=== PATIENT | male | born 1950 | race Caucasian/White ===

== ENCOUNTER 2018-05-21 12:37 | Inpatient (IN) | payer MEDICARE ==
[~2018-05-21] VITALS: Ht 175.3 cm; Wt 82.0 kg
[2018-05-21] VITALS (29 sets, daily range): BP systolic 79–152; BP diastolic 52–92
--- NOTE | ~2018-05-21 | EKG ---
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
--- NOTE | ~2018-05-21 | PR ---
[place], [place] PROGRESS NOTE NAME: GISELE QUINTANILLA UNIT #: [id number] ROOM: [facility] DOCTOR: BREEZY STEVENS MD,GAMALIEL BIRTHDATE: [birth year] DOS: 05/23/2018 SUBJECTIVE: The patient remains on mechanical ventilator on the assist control, volume control mechanical ventilation. Oxygen supplementation decreased from 35%, 30% oxygen saturation at bedside recorded as 95-96% saturation. The sedation was continued with Diprivan and Versed combination. Mental status has been noted appropriate with reduction of sedation this morning. He had not been noted any ongoing acute hemodynamic stability. The patient was continued feeding from yesterday. Ventilator bundle management was continued. There had not been any significant secretion production noted from the endotracheal aspirate which appeared to be thick. OBJECTIVE: VITAL SIGNS: The patient showed normal temperature, respiratory rate range between 18-19, heart rate of 94-87, blood pressure 154/81, 123/67. The pulse oxygen saturation 30% oxygen 96% saturation at bedside. HEAD, EYES, EARS, NOSE, AND THROAT: The patient remained orally intubated. Endotracheal tube in place as the orogastric tube is in place. NECK: Supple and obese. CARDIOVASCULAR SYSTEM: S1, S2 audible. LUNGS: Moderate decreased breath sounds were noted at the present time. There were no crackles, rhonchi or wheezing. ABDOMEN: Soft, obese, nontender. Bowel sounds present. EXTREMITIES: The patient noted without acute edema. VISIBLE SKIN: No lesions or rashes. MUSCULOSKELETAL: Without any acute deformities. LABORATORY DATA: CBC this morning: WBC count of 11.1, hemoglobin 12.2, platelet count was normal. BMP this morning, BUN 55, creatinine 1.60. Glucose 290. Calcium was low at 7.2, but uncorrected with the albumin. Magnesium 2.6. The culture of the endotracheal aspirate preliminary noted normal gibson. Gram stain many white blood cells with few gram-positive cocci in pairs. Blood culture was noted without any bacterial growths. IMPRESSION: 1. The patient will be currently admitted to the hospital noted with acute severe exacerbation of chronic obstructive pulmonary disease, acute severe hypercapnic and hypoxemic respiratory failure. 2. The patient with a small pneumonia and/or atelectasis right lower lobe has been considered and acute chronic moderate obesity. 3. Heavy nicotine abuse as well. 4. The patient with prerenal azotemia with acute kidney with intravascular volume depletion would be very likely cause. 5. Metabolic alkalosis. 6. Low gas allowed, but uncorrected with that of no clinical significance. PLAN OF MANAGEMENT: The patient will be discontinued sedation at the present time, started at CPAP of 5, pressure support of 10 for 2 hours. The tidal volume noted about 500 mL per. Respiratory rate about 26, 28 on that, the patient appeared to be comfortable. The vasopressor therapy in case of [place], [place] PROGRESS NOTE NAME: GISELE QUINTNAILLA UNIT #: [id number] ROOM: [facility] DOCTOR: BREEZY STEVENS MD,GAMALIEL BIRTHDATE: [birth year] hypotension. Continue replacement patches and continue ventilator bundle management. No change in antibiotics. Repeat another chest x-ray of this morning to assess progression of the left lower lobe area of atelectasis for any additional development of new issues. Other supportive therapy, plan of management and care plan for this as well. Usual treatment, all other care, plan of management and therapies. Additional treatment changes will be done based on the progression of the illness. Total time in pulmonary critical evaluation and management was 36 minutes. GAMALIEL TIJERINA MD CM:PNTRANS [id number] GAMALIEL STEVENS MD 06/04/18 1026 interface
--- NOTE | ~2018-05-21 | PR ---
[place], [place] PROGRESS NOTE NAME: GISELE QUINTANILLA UNIT #: [id number] ROOM: [facility] DOCTOR: BREEZY STEVENS MD,GAMALIEL BIRTHDATE: [birth year] DOS: 05/25/2018 SUBJECTIVE: The patient was noted comfortable at this time, resting on the bed. This morning was noted much more awake, alert, oriented and cooperative with examination. The patient would like to be discharged home today. Case medical advice. He seemed to be awake, alert, oriented this morning. The oxygen supplementation was given with the nasal cannula, using the BiPAP intermittently in the last 24 hours. Denies symptoms of chest pain or hemoptysis. There were no symptoms of fever or chills reported. Denies symptoms of nausea, vomiting, diarrhea, headache, or diplopia. Remaining review of systems was noted as normal rather negative. OBJECTIVE: VITAL SIGNS: Shows normal temperature, respiratory rate of 19-28 previously. Heart rate of 82-115, blood pressure is 142/63-139/76. The pulse oxygen saturation with BiPAP was 94% saturation with the nasal cannula about 3-4 liters and 95% saturation at rest. HEENT: No new change. Mild to moderate obesity. CARDIOVASCULAR: S1, S2 audible. LUNGS: There is no wheezing, no crackles. ABDOMEN: Soft, nontender. Bowel sounds present. EXTREMITIES: No acute change. MUSCULOSKELETAL: Without acute deformities. CENTRAL NERVOUS SYSTEM: No focal deficit. SKIN: Visible skin without lesions or rashes. LABORATORY DATA: CBC of the patient this morning WBC count 11.5, hemoglobin 13.4, platelet count normal. Arterial blood gas this morning on the BiPAP, pH 7.41, pCO2 of 62, pO2 of 77.1. The CMP of the patient this morning, BUN 32, creatinine normal, glucose of 89. IMPRESSION: 1. Resolving acute hypercapnic hypoxic respiratory failure. 2. Severe acute exacerbation of chronic obstructive pulmonary disease. The patient with gradual improvement. 3. Nicotine dependence. 4. Moderate obesity. PLAN OF MANAGEMENT: Discharge planning per primary care physician or discharge against medical advice. The patient will be recommended about continued management in the hospital. The patient to be discharged whenever medically stable. His code status had been changed to comfort care as stated by the patient. [place], [place] PROGRESS NOTE NAME: GISELE QUINTANILLA UNIT #: [id number] ROOM: [facility] DOCTOR: BREEZY STEVENS MD,GAMALIEL BIRTHDATE: [birth year] GAMALIEL TIJERINA MD CM:KASIA [id number] GAMALIEL STEVENS MD 05/26/18212 interface
--- NOTE | ~2018-05-21 | EKG ---
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
--- NOTE | ~2018-05-21 | PR ---
[place], [place] PROGRESS NOTE NAME: GISELE QUINTANILLA UNIT #: [id number] ROOM: [facility] DOCTOR: BREEZY STEVENS MD,GAMALIEL BIRTHDATE: [birth year] DOS: 05/24/2018 SUBJECTIVE: He was successfully liberated from mechanical ventilator, noted some agitated behavior at times requiring wrist restraints. The patient was also given Ativan last night because of that and was noted with change in mental status with lethargy. This morning, the patient has been noted with the BiPAP on place, but still does not follow vocal commands. He was also noted difficulty swallowing yesterday and made n.p.o. He had not been able to give me any history. The oxygen requirement on the BiPAP remains the same. The patient has not been noted with any acute distress this morning of assessment except noted with some restlessness. REVIEW OF SYSTEMS: Could not be completed because of that. Family, social, surgical history remains the same. OBJECTIVE: VITAL SIGNS: Normal temperature, respiratory rate 14, heart rate 88, blood pressure is 119/60 to 125/69. The pulse oxygen saturation recorded as 99% saturation with the BiPAP 18/10, 40% oxygen. HEENT: Examination shows head was atraumatic. Eyes nonicterus. Chronic moderate obesity. The patient orally extubated. Orogastric tube has been removed. NECK: Supple and obese. CARDIOVASCULAR: S1, S2 audible. LUNGS: [id number], decreased breath sounds noted without any crackles. Scattered expiratory wheezing. ABDOMEN: Soft, nontender, positive bowel sounds. EXTREMITIES: No new changes. SKIN: No lesions or rashes. MUSCULOSKELETAL: Without any deformity. CENTRAL NERVOUS SYSTEMS: Cannot be assessed at this time with current mental status. LABORATORY DATA: Labs today CBC, WBC count 12.9, hemoglobin 12.7, platelet count was normal. The BMP this morning, BUN 41, creatinine was normal, glucose 311. The culture of the sputum endotracheal aspiration noted light growth of yeast. IMPRESSION: 1. The patient with change in mental status with resolving acute exacerbation of chronic obstructive pulmonary disease with possibility of psychosis, superimposed as well. 2. The patient with chronic obesity. 3. Past history of nicotine abuse. 4. Resolution of acute kidney progressively. 5. Acute tracheobronchitis as well. PLAN OF MANAGEMENT: Decrease the Solu-Medrol dose to 40 mg b.i.d. today. Obtain arterial blood gas. Continue the BiPAP current settings. Discontinue [place], [place] PROGRESS NOTE NAME: GISELE QUINTANILLA UNIT #: [id number] ROOM: [facility] DOCTOR: BREEZY STEVENS MD,GAMALIEL BIRTHDATE: [birth year] the Ativan. Start the patient on Haldol 2.5 mg q. 4 hour p.r.n. for any agitated behavior. Keep the patient n.p.o. until the mental status improves. Ordered the modified barium swallow because the patient will not be able to cooperate and perform it at this time as expected current mental status changes. The medication will be changed since the patient was liberated from mechanical ventilation and discontinue and medication would not be necessary, used as a part of ventilator bundle management in the Intensive Care Unit at the present time. Usual care, other supportive therapy, plan of management, care plan of treatment and therapies. Other additional treatment changes will be made based on progression of the illness. GAMALIEL TIJERINA MD CM:PNTRANS [id number] GAMALIEL STEVENS MD 06/04/18 1027 interface
--- NOTE | ~2018-05-21 | EKG ---
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
--- NOTE | ~2018-05-21 | CON ---
[place], [place] REPORT OF CONSULTATION NAME: GISELE QUINTANILLA UNIT #: [id number] ROOM: [facility] DOCTOR: BREEZY STEVENS MD,GAMALIEL BIRTHDATE: [birth year] DOS: 05/22/2018 PULMONARY CRITICAL CARE CONSULTATION History could not be obtained from the patient, all the history contained in document with patient, reviewed the medical record, patient documentation by the other physician noted and nurses' notes. HISTORY OF PRESENT ILLNESS: A 67-year-old white male with past history of COPD and diabetes mellitus, presented to the hospital by ambulance. The patient has reported symptoms of shortness of breath. Patient noted to be in severe respiratory distress. The patient shortness of breath prior to arrival. The patient has been admitted to the hospital for patient noted for progressive deterioration of respiratory status requiring intubation and mechanical ventilation for the progressive respiratory failure, nonresponsive to the current conservative therapy. The patient has been currently intubated, remains on mechanical ventilator, sedated with intravenous Diprivan for patient effectively. He has been continuing mechanical ventilation, gradual reduction of the oxygen supplementation was done for the patient based on pulmonary artery saturation and review of the arterial blood gases. He has not been noted any frothy secretion production, patient had endotracheal aspirate, moderate amount of thick secretion production was noted from the endotracheal aspirate. REVIEW OF SYSTEMS: For this patient could not be performed since the patient is currently intubated on mechanical ventilation. PAST MEDICAL HISTORY: Reported with: 1. COPD. 2. Type 2 diabetes mellitus. 3. Essential hypertension. 4. Hyperlipidemia. 5. Diabetic gastroparesis. 6. Chronic nicotine dependence. PAST SURGICAL HISTORY: Reported as cholecystectomy. SOCIAL HISTORY: The patient lives at home. Heavy tobacco use noted from patient from since a teenager patient, 3-5 packs of cigarettes per day for this patient. There was no history of alcohol use or illicit drug use that patient reported. FAMILY HISTORY: Reported for the father of patient dying at the age of 70 of complications of stroke. Mother age of 70 from complications of lung cancer. MEDICATIONS AT HOME: List was not available. DRUG ALLERGIES: Patient reported ALLERGIES TO CODEINE CAUSING HIVES. PHYSICAL EXAMINATION: [place], [place] REPORT OF CONSULTATION NAME: GISELE QUINTANILLA UNIT #: [id number] ROOM: [facility] DOCTOR: BREEZY STEVENS MD,GAMALIEL BIRTHDATE: [birth year] GENERAL: A 67-year-old male patient, currently intubated on mechanical ventilator at the present time. VITAL SIGNS: Height of 5 feet 9 inches, weight of 180 pounds. Patient with temperature recorded showed normal temperature since admission. The respiratory rate of patient between 46 the highest. The patient currently noted on mechanical ventilator, respiratory rate 14, heart rate ranging between 88, noted 160 from admission. The blood pressure of patient noted at 99/67 patient to 100/68. Intake patient since last night, intake 3000 mL, output 475 mL. Pulse ox saturation 35% oxygen, 99% saturation. Previously with the BiPAP 97% saturation. HEENT: Patient remains currently intubated. Orogastric tube is in place. Head was atraumatic. Eyes nonicterus. NECK: Supple. It was mildly obese. CARDIOVASCULAR SYSTEM: S1, S2 audible. LUNGS: The patient is noted with decreased active breath sounds with expiratory wheezing without any crackles. ABDOMEN: Soft with mild obesity. Bowel sounds present. EXTREMITIES: The patient noted without acute edema with no skin lesions or rash. MUSCULOSKELETAL: Without acute deformities. CENTRAL NERVOUS SYSTEM: At this time, patient is sedated. Further evaluation cannot be performed, but not reported any neurologic deficit prior to the intubation, mechanical ventilation and sedation. LABORATORY DATA: The patient's lactic acid yesterday on admission was 1.9. CMP that was done on the patient on 05/21, glucose 224, BUN, creatinine and LFTs normal. The pH of 7.25, pCO2 of 64, pO2 of 102. CBC on the patient that was done yesterday, WBC count 25.3, hemoglobin and hematocrit normal, platelet count normal. Influenza A and B nasal wash and antigens were negative. The troponin 0.821 yesterday, noted a repeat troponin on patient, max of 1.52 yesterday as well. The CBC on the patient on this morning labs, WBC count 13.5, hemoglobin 13.5, platelet count was normal, 94% segmented neutrophils with the differentials. PT and PTT for the patient this morning remains normal. CMP of the patient this morning labs, BUN of 41, creatinine 1.95, glucose of 390, sodium 134. Phosphorus was 5.5. CMP of the patient yesterday labs, patient was noted with hyperglycemia, otherwise normal CMP. Blood glucose was noted for the patient 471 yesterday. Arterial blood gas for patient, several of those was repeated for this patient at different times for this patient. The pH is 7.25, pCO2 of 64 on 10 liter nasal cannula for the patient. Arterial blood gas for the patient that was done post-intubation, mechanical ventilation, 100% oxygen, pH was 7.15, pCO2 of 73, pO2 of 150. The arterial blood gas that has been done for patient this morning, assist control volume control mechanical ventilation, pH 7.42, pCO2 of 52, pO2 of 111 for the patient, at that time, the oxygen supplementation noted 35%. RADIOLOGY DATA: Reviewed of this patient. The chest x-rays were done several on admission for this patient. Chest x-ray that was done for the patient in the Emergency Room yesterday noted without any acute changes, hyperinflation of lungs were noted. Chest x-ray that was done for the patient this morning was reviewed, shows mild increased interstitial markings, multi-lumen catheter in [place], [place] REPORT OF CONSULTATION NAME: GISELE QUINTANILLA UNIT #: [id number] ROOM: [facility] DOCTOR: BREEZY STEVENS MD,[facility] BIRTHDATE: [birth year] place in the right internal jugular vein, endotracheal tube in proper position, NG tube in the stomach, changes of COPD, mild prominent left hilar area, maybe rotational effect. IMPRESSION: 1. Patient currently admitted to the hospital, noted severe acute hypercapnic and hypoxic respiratory failure, result of acute exacerbation of chronic obstructive pulmonary disease and acute tracheobronchitis. At this time, there was no visible pneumonic infiltration. 2. History of chronic heavy nicotine dependence as well. 3. Patient with severe tachycardia, which seemed to be improved. 4. Abnormal troponin, possible non-ST segment elevation myocardial infarction as well, currently treating patient with conservative management with use of therapeutic Lovenox, chewable aspirin and other medications. 5. Patient with history of essential hypertension and hyperlipidemia as well. PLAN OF MANAGEMENT: Continue current antibiotics, corticosteroid for patient Solu-Medrol every 8 hours, ventilator bundle management. Valle culture for the patient will be obtained as well. Continue to adjust ventilator setting. The patient remains on ventilatory status, some changes have been made in mechanical ventilation for patient to improve his inspiratory and expiratory ratio. Mechanical ventilation was improved with that as well without significant elevation of peak airway pressure, the plateau pressure noted about 15-16 as well and peak airway pressure about 37. Oxygen supplementation continue to titrate to maintain pulse ox 92% or greater. Other additional treatment changes will be planned and made for this patient based on progressive illness. Because of COPD exacerbation, DuoNeb will be changed to albuterol sulfate. Peridex rinse for the patient was ordered. Protonix will be given. Follow the other recommendations for patient by the Cardiology Service for cardiac management. Close monitoring of the respiratory status. The patient will be started on the nutrition support as well. Other additional treatment changes will be done for the patient based on progression of the illness. Total time for pulmonary critical care evaluation and management for the patient was 40 minutes. GAMALIEL TIJERINA MD CM:CONSTR:REPORT OF CONSULTATION 1346 05/23/18 1327 interface
--- NOTE | ~2018-05-21 | PR ---
[place], [place] PROGRESS NOTE NAME: GISELE QUINTANILLA UNIT #: [id number] ROOM: [facility] DOCTOR: BREEZY SETVENS MD,GAMALIEL BIRTHDATE: [birth year] DOS: 05/26/2018 SUBJECTIVE: The patient was noted comfortable at this time, sitting on the chair this morning. Planned for possible home discharge today upon patient request. The code status has been modified yesterday also because the patient requires. Denies symptoms of chest pain, hemoptysis, fever or chills. OBJECTIVE: VITAL SIGNS: Normal temperature, respiratory rate 28, heart rate of 84, and blood pressure 135/59. Pulse oxygen saturation of 4 liters nasal cannula 97% saturation. HEENT: No acute change. NECK: Supple. CARDIOVASCULAR: S1, S2 audible. LUNGS: The patient was noted with occasional wheezing, no crackles. ABDOMEN: Soft and nontender. Bowel sounds present. EXTREMITIES: No acute change. LABORATORY DATA: CBC, WBC count 11.0, hemoglobin 12.2, platelet count normal. BUN 26, creatinine was normal. Glucose 177. IMPRESSION: 1. The patient with resolving acute hypercapnic hypoxic respiratory failure, exacerbation of chronic obstructive pulmonary disease. 2. Muscle decondition and debility secondary to current acute exacerbation of chronic obstructive pulmonary disease and respiratory failure. PLAN OF MANAGEMENT: No changes in the plan of management. According to the patient wishes to code status will be continued the same. Discharge planning for the patient has already been made for this patient by the primary care attending. Follow the directions. GAMALIEL TIJERINA MD CM:PNTRANS [id number] GAMALIEL STEVENS MD 05/26/181919 interface
--- NOTE | ~2018-05-21 | EKG ---
[place], [place] ELECTROCARDIOGRAM REPORT NAME: GISELE QUINTANILLA UNIT #: [id number] ROOM: [facility] DOCTOR: USMAN DRAFT REPORT BIRTHDATE: [birth year] [facility] Test Date: 2018-05-21 Test Time: 20:10:44 Pat Name: GISELE QUINTANILLA Department: Room: [facility] 1 Gender: M Keyliner: Griselda Briseno : 1950 Requested By: SYDNEY BOURGEOIS Order Number: [id number] Reading MD: Shanique Pearson MD Measurements Intervals [place] Rate: 114 P: 65 RI: 129 QRS: 89 QRSD: 94 T: 85 QT: 311 QTc: 429 Interpretive Statements Sinus tachycardia Borderline right axis deviation Nonspecific T abnormalities, lateral leads Compared to ECG 05/21/2018 13:24:42 T-wave abnormality now present Atrial premature complex(es) no longer present Electronically Signed On 05-22-2018 12:16:42 PST by Shanique Pearson MD CM:EKGRPT:ELECTROCARDIOGRAM REPORT 09 [id number] SYDNEY BOURGEOIS EPIPHANY DRAFT REPORT SYDNEY BOURGEOIS
[2018-05-21 13:06] LABS: HEMATOCRIT 47.6 % (42.0-52.0); HEMOGLOBIN 15.6 g/dl (14.0-18.0); MEAN CORPUSCULAR HGB 29.5 pg (27.0-31.0); MEAN CORPUSCULAR HGB CONC 32.8 g/dl (33.0-37.0); MEAN PLATELET VOLUME 10.6 fl (9.6-12.3); PLATELET COUNT AUTOMATED 249 10*3/uL (130-400); RED BLOOD COUNT 5.29 10*6/uL (4.50-5.90); RED CELL DISTRI WIDTH 14.5 % (0-14.5); WHITE BLOOD COUNT 25.3 10*3/uL (4.8-10.8)
[2018-05-21 13:19] LABS: ALBUMIN 3.2 gm/dl (3.1-4.5); ALKALINE PHOSPHATASE 92 U/L (45-117); BUN 24 mg/dl (7-24); CHLORIDE 100 mmol/L (98-107); CREATININE 1.08 mg/dL (0.70-1.30); POTASSIUM 4.2 mmol/L (3.5-5.1); SGOT/AST 24 IU/L (3-35); SGPT/ALT 17 U/L (12-78); SODIUM 137 mmol/L (136-145); TOTAL PROTEIN 7.4 gm/dL (6.4-8.2)
[2018-05-21 13:25] LABS: ABG BASE EXCESS -0.7 mmol/L (-2.0-2.0); ABG HCO3 27.1 mmol/l (22-26); ARTERIAL BLOOD GAS PCO2 64.4 mmHg (35-45); ARTERIAL BLOOD GAS PH 7.257 (7.35-7.45)
[2018-05-21 13:40] LABS: PLATELET SUFFICIENCY NORMAL (NORMAL); TOTAL CELLS COUNTED 100 #CELLS
[2018-05-21 18:00] LABS: BILIRUBIN NEGATIVE (NEGATIVE); BLOOD TRACE-INTACT (NEGATIVE); CLARITY CLEAR (CLEAR); COLOR YELLOW (YELLOW); GLUCOSE 3+ (NEGATIVE); KETONE NEGATIVE (NEGATIVE); LEUKO ESTERASE NEGATIVE (NEGATIVE); NITRITE NEGATIVE (NEGATIVE); PH 5.5 (5.0-9.0); SPECIFIC GRAVITY 1.025 (1.005-1.030); UROBILINOGEN 0.2 E.U./dl (0.2-1.0)
[2018-05-21 18:08] LABS: BACTERIA 2+; EPITHELIAL CELLS 0-2; RBC 0-2 rbc/hpf (0-2)
[2018-05-21 18:09] LABS: MUCOUS TRACE
[2018-05-21 19:02] LABS: PHOSPHOROUS 6.6 mg/dL (2.5-4.9)
[2018-05-21 19:23] LABS: ABG HCO3 24.5 mmol/l (22-26); ABG O2 SATURATION 99.3 % (95-97)
[2018-05-21 19:24] LABS: ABG BASE EXCESS -5.9 mmol/L (-2.0-2.0)
[2018-05-21 19:25] LABS: ARTERIAL BLOOD GAS PCO2 73.5 mmHg (35-45); ARTERIAL BLOOD GAS PH 7.153 (7.35-7.45)
[2018-05-21 22:22] LABS: ABG BASE EXCESS -3.5 mmol/L (-2.0-2.0); ABG HCO3 23.8 mmol/l (22-26); ABG O2 SATURATION 98.2 % (95-97); ARTERIAL BLOOD GAS PCO2 53.3 mmHg (35-45); ARTERIAL BLOOD GAS PH 7.271 (7.35-7.45)
[2018-05-22] VITALS (41 sets, daily range): BP systolic 94–154; BP diastolic 53–87
[2018-05-22 05:49] LABS: ALBUMIN 2.4 gm/dl (3.1-4.5); CREATININE 1.95 mg/dL (0.70-1.30); FREE T4 1.24 ng/dl (0.76-1.46); PHOSPHOROUS 5.5 mg/dL (2.5-4.9)
[2018-05-22 05:54] LABS: THYROID STIM HORMONE (HS) 0.379 uIU/ml (0.358-4.75); TOTAL PROTEIN 5.8 gm/dL (6.4-8.2)
[2018-05-22 06:59] LABS: ACT PARTIAL THROMBO TIME 26.2 SECONDS (20.8-31.5); INTERNATIONAL NORM RATIO 0.9 (2.0-3.5)
[2018-05-22 07:09] LABS: ABG HCO3 21.9 mmol/l (22-26); ABG O2 SATURATION 97.3 % (95-97); ARTERIAL BLOOD GAS PCO2 52.7 mmHg (35-45); ARTERIAL BLOOD GAS PH 7.242 (7.35-7.45)
[2018-05-22 07:13] LABS: ABG BASE EXCESS -5.4 mmol/L (-2.0-2.0)
[2018-05-22 07:14] LABS: HEMATOCRIT 42.3 % (42.0-52.0); MEAN CORPUSCULAR HGB 29.7 pg (27.0-31.0); MEAN CORPUSCULAR HGB CONC 31.9 g/dl (33.0-37.0); MEAN PLATELET VOLUME 11.2 fl (9.6-12.3); RED BLOOD COUNT 4.54 10*6/uL (4.50-5.90); RED CELL DISTRI WIDTH 14.6 % (0-14.5); WHITE BLOOD COUNT 13.5 10*3/uL (4.8-10.8)
[2018-05-22 07:35] LABS: VITAMIN D, 25-HYDROXY 5.1 ng/mL (30-100)
[2018-05-22 07:51] LABS: HEMOGLOBIN 13.5 g/dl (14.0-18.0)
[2018-05-22 07:52] LABS: MEAN CELL VOLUME 93.2 fl (80.0-94.0)
[2018-05-22 07:53] LABS: PLATELET COUNT AUTOMATED 181 10*3/uL (130-400)
[2018-05-22 08:05] LABS: PLATELET SUFFICIENCY NORMAL (NORMAL); TOTAL CELLS COUNTED 100 #CELLS
[2018-05-22 11:04] LABS: ABG BASE EXCESS -4.3 mmol/L (-2.0-2.0); ABG HCO3 22.8 mmol/l (22-26); ABG O2 SATURATION 97.6 % (95-97); ARTERIAL BLOOD GAS PCO2 51.2 mmHg (35-45); ARTERIAL BLOOD GAS PH 7.267 (7.35-7.45); ARTERIAL BLOOD GAS PO2 88.5 mmHg (80-90)
[2018-05-22 14:35] LABS: CREATININE 1.69 mg/dL (0.70-1.30); POTASSIUM 4.1 mmol/L (3.5-5.1)
[2018-05-22 19:27] LABS: CREATININE 1.59 mg/dL (0.70-1.30); POTASSIUM 4.1 mmol/L (3.5-5.1)
[2018-05-23] VITALS (9 sets, daily range): BP systolic 104–142; BP diastolic 58–77
[2018-05-23 04:34] LABS: BASO % 0.2 % (0.0-1.0); HEMATOCRIT 37.6 % (42.0-52.0); HEMOGLOBIN 12.2 g/dl (14.0-18.0); LYMPH # 1.6 10*3/uL (1.3-4.4); LYMPH % 14.2 % (27.0-41.0); MEAN CELL VOLUME 92.2 fl (80.0-94.0); MEAN CORPUSCULAR HGB 29.9 pg (27.0-31.0); MEAN CORPUSCULAR HGB CONC 32.4 g/dl (33.0-37.0); MEAN PLATELET VOLUME 10.6 fl (9.6-12.3); MONO # 0.3 10*3/uL (0.1-1.0); MONO % 2.3 % (3.0-9.0); NEUT # 9.1 10*3/uL (2.3-7.9); NEUT % 82.1 % (47.0-73.0); PLATELET COUNT AUTOMATED 156 10*3/uL (130-400); RED BLOOD COUNT 4.08 10*6/uL (4.50-5.90); RED CELL DISTRI WIDTH 14.7 % (0-14.5); WHITE BLOOD COUNT 11.1 10*3/uL (4.8-10.8)
[2018-05-23 04:59] LABS: CREATININE 1.6 mg/dL (0.70-1.30); PHOSPHOROUS 4.1 mg/dL (2.5-4.9)
[2018-05-23 06:17] LABS: ABG BASE EXCESS -4.5 mmol/L (-2.0-2.0); ABG HCO3 21.6 mmol/l (22-26); ABG O2 SATURATION 98.5 % (95-97); ARTERIAL BLOOD GAS PCO2 45.2 mmHg (35-45); ARTERIAL BLOOD GAS PH 7.297 (7.35-7.45)
[2018-05-23] MEDS ORDERED: Carafate1 GM PO (07:18)
[2018-05-23] MEDS ORDERED: PROAIR HFA8.5 GM INH (07:19)
[2018-05-23] MEDS ORDERED: SYMB160 INH (07:19)
[2018-05-23] MEDS ORDERED: LANTUS SOL100 UNIT/1 SQ (07:20)
[2018-05-23 11:38] LABS: ABG BASE EXCESS -3.9 mmol/L (-2.0-2.0); ABG HCO3 21.9 mmol/l (22-26); ABG O2 SATURATION 95.1 % (95-97); ARTERIAL BLOOD GAS PCO2 45.1 mmHg (35-45); ARTERIAL BLOOD GAS PH 7.307 (7.35-7.45); ARTERIAL BLOOD GAS PO2 79.9 mmHg (80-90)
[2018-05-24] VITALS: BP 130/71
[2018-05-24 04:00] VITALS: BP 125/69
[2018-05-24 05:05] LABS: BASO % 0.2 % (0.0-1.0); HEMATOCRIT 39.7 % (42.0-52.0); HEMOGLOBIN 12.7 g/dl (14.0-18.0); LYMPH # 1.2 10*3/uL (1.3-4.4); MEAN CELL VOLUME 92.8 fl (80.0-94.0); MEAN CORPUSCULAR HGB 29.7 pg (27.0-31.0); MEAN PLATELET VOLUME 10.6 fl (9.6-12.3); MONO # 0.3 10*3/uL (0.1-1.0); MONO % 2.4 % (3.0-9.0); NEUT # 11.2 10*3/uL (2.3-7.9); NEUT % 87.2 % (47.0-73.0); PLATELET COUNT AUTOMATED 170 10*3/uL (130-400); RED BLOOD COUNT 4.28 10*6/uL (4.50-5.90); RED CELL DISTRI WIDTH 15.1 % (0-14.5); WHITE BLOOD COUNT 12.9 10*3/uL (4.8-10.8)
[2018-05-24 05:19] LABS: CHLORIDE 110 mmol/L (98-107); CREATININE 1.03 mg/dL (0.70-1.30); PHOSPHOROUS 3.1 mg/dL (2.5-4.9); POTASSIUM 4.9 mmol/L (3.5-5.1); SODIUM 144 mmol/L (136-145)
[2018-05-24 05:34] LABS: BUN 41 mg/dl (7-24)
[2018-05-24 08:00] VITALS: BP 119/60
[2018-05-24 12:00] VITALS: BP 111/63
[2018-05-24 13:20] LABS: ABG HCO3 26.6 mmol/l (22-26); ABG O2 SATURATION 97.7 % (95-97); ARTERIAL BLOOD GAS PCO2 43.2 mmHg (35-45); ARTERIAL BLOOD GAS PH 7.405 (7.35-7.45); ARTERIAL BLOOD GAS PO2 85.6 mmHg (80-90)
[2018-05-24 16:00] VITALS: BP 142/78
[2018-05-24 20:00] VITALS: BP 145/78
[2018-05-25] VITALS: BP 136/81
[2018-05-25 04:00] VITALS: BP 139/76
[2018-05-25 05:36] LABS: ALBUMIN 2.6 gm/dl (3.1-4.5); ALKALINE PHOSPHATASE 57 U/L (45-117); BUN 32 mg/dl (7-24); CHLORIDE 108 mmol/L (98-107); PHOSPHOROUS 3.1 mg/dL (2.5-4.9); POTASSIUM 4.9 mmol/L (3.5-5.1); SGOT/AST 21 IU/L (3-35); SGPT/ALT 18 U/L (12-78); SODIUM 145 mmol/L (136-145); TOTAL PROTEIN 5.8 gm/dL (6.4-8.2)
[2018-05-25 06:05] LABS: BASO % 0.3 % (0.0-1.0); HEMATOCRIT 41.1 % (42.0-52.0); HEMOGLOBIN 13.4 g/dl (14.0-18.0); LYMPH % 8.6 % (27.0-41.0); MEAN CELL VOLUME 92.6 fl (80.0-94.0); MEAN CORPUSCULAR HGB 30.2 pg (27.0-31.0); MEAN CORPUSCULAR HGB CONC 32.6 g/dl (33.0-37.0); MEAN PLATELET VOLUME 10.5 fl (9.6-12.3); MONO # 0.3 10*3/uL (0.1-1.0); MONO % 2.8 % (3.0-9.0); NEUT % 87.1 % (47.0-73.0); PLATELET COUNT AUTOMATED 196 10*3/uL (130-400); RED BLOOD COUNT 4.44 10*6/uL (4.50-5.90); WHITE BLOOD COUNT 11.5 10*3/uL (4.8-10.8)
[2018-05-25 07:45] LABS: ABG BASE EXCESS 2.5 mmol/L (-2.0-2.0); ABG O2 SATURATION 95.1 % (95-97); ARTERIAL BLOOD GAS PCO2 42.8 mmHg (35-45); ARTERIAL BLOOD GAS PH 7.415 (7.35-7.45); ARTERIAL BLOOD GAS PO2 77.1 mmHg (80-90)
[2018-05-25 08:00] VITALS: BP 142/66
[2018-05-25 12:00] VITALS: BP 165/87
[2018-05-25 16:00] VITALS: BP 128/53
[2018-05-25 20:00] VITALS: BP 137/56
[2018-05-26] VITALS: BP 134/59
[2018-05-26 04:33] LABS: BASO % 0.1 % (0.0-1.0); HEMATOCRIT 40.3 % (42.0-52.0); HEMOGLOBIN 12.2 g/dl (14.0-18.0); LYMPH % 9.2 % (27.0-41.0); MEAN CELL VOLUME 93.7 fl (80.0-94.0); MEAN CORPUSCULAR HGB 28.4 pg (27.0-31.0); MEAN CORPUSCULAR HGB CONC 30.3 g/dl (33.0-37.0); MEAN PLATELET VOLUME 9.9 fl (9.6-12.3); MONO # 0.4 10*3/uL (0.1-1.0); MONO % 3.7 % (3.0-9.0); NEUT # 9.4 10*3/uL (2.3-7.9); NEUT % 86.1 % (47.0-73.0); PLATELET COUNT AUTOMATED 175 10*3/uL (130-400); RED CELL DISTRI WIDTH 14.6 % (0-14.5)
[2018-05-26 05:04] LABS: BUN 26 mg/dl (7-24); CHLORIDE 105 mmol/L (98-107); CREATININE 0.67 mg/dL (0.70-1.30); POTASSIUM 4.8 mmol/L (3.5-5.1); SODIUM 142 mmol/L (136-145)
[2018-05-26 08:00] VITALS: BP 132/60
[2018-05-26 12:00] VITALS: BP 130/58
[2018-05-26] MEDS ORDERED: ATIVAN0.5 MG PO (15:15)
[2018-05-26] MEDS ORDERED: PREDNISONE10 MG PO (15:15)
[2018-05-26] MEDS ORDERED: ATROPINE SULFATE2 M2 OP (15:15)
[2018-05-26] MEDS ORDERED: MUCINEX ER600 MG PO (15:15)
[2018-05-26] MEDS ORDERED: LOPRESSOR25 MG NG (15:15)
[2018-05-26] MEDS ORDERED: ZITHROMAX250 MG PO (15:15)
[2018-05-26] MEDS ORDERED: MORPHINE S20 MG/5 ML PO (15:15)
[2018-05-26] MEDS ORDERED: MORPHINE S20 MG/1 M1 PO (15:33)
[2018-05-26 16:00] VITALS: BP 124/54
[2018-05-26 20:00] VITALS: BP 131/60
== END 2018-05-26 20:10 | disposition home or self-care (01) | DRG 871 ==
LOC: ED 12:37 → EDHOLD 14:19 → ICCU 14:19 → 5E 14:43 → ICCU 17:14
PROVIDERS: Emergency Medicine; Internal Medicine; Internal Medicine Critical Care Medicine; Internal Medicine Nephrology; ADMIT Internal Medicine
PROC: 5A09357 Assistance with Respiratory Ventilation, Less than 24 Consecutive Hours, Continuous Positive Airway Pressure (ICD-10-PCS; principal; 2018-05-21)
PROC: 02HV33Z Insertion of Infusion Device into Superior Vena Cava, Percutaneous Approach (ICD-10-PCS; principal; 2018-05-21)
PROC: B54MZZA Ultrasonography of Right Upper Extremity Veins, Guidance (ICD-10-PCS; principal; 2018-05-21)
PROC: 05HY33Z Insertion of Infusion Device into Upper Vein, Percutaneous Approach (ICD-10-PCS; principal; 2018-05-21)
PROC: B548ZZA Ultrasonography of Superior Vena Cava, Guidance (ICD-10-PCS; principal; 2018-05-21)
PROC: 5A1945Z Respiratory Ventilation, 24-96 Consecutive Hours (ICD-10-PCS; 2018-05-22)
PROC: 0BH17EZ Insertion of Endotracheal Airway into Trachea, Via Natural or Artificial Opening (ICD-10-PCS; 2018-05-22)
PROC: 5A09457 Assistance with Respiratory Ventilation, 24-96 Consecutive Hours, Continuous Positive Airway Pressure (ICD-10-PCS; 2018-05-23)
DX: A41.9 Sepsis, unspecified organism (principal); J96.01 Acute respiratory failure with hypoxia; N17.0 Acute kidney failure with tubular necrosis; J96.02 Acute respiratory failure with hypercapnia; R65.21 Severe sepsis with septic shock; G93.41 Metabolic encephalopathy; J18.1 Lobar pneumonia, unspecified organism; J44.1 Chronic obstructive pulmonary disease with (acute) exacerbation; E87.1 Hypo-osmolality and hyponatremia; J44.0 Chronic obstructive pulmonary disease with (acute) lower respiratory infection; I24.8 Other forms of acute ischemic heart disease; J98.11 Atelectasis; E87.3 Alkalosis; I10 Essential (primary) hypertension; E78.5 Hyperlipidemia, unspecified; E66.3 Overweight; E55.9 Vitamin D deficiency, unspecified; F17.210 Nicotine dependence, cigarettes, uncomplicated; I95.9 Hypotension, unspecified; Z66 Do not resuscitate; E66.9 Obesity, unspecified; J20.9 Acute bronchitis, unspecified; Z51.5 Encounter for palliative care; E11.43 Type 2 diabetes mellitus with diabetic autonomic (poly)neuropathy; K31.84 Gastroparesis; E11.65 Type 2 diabetes mellitus with hyperglycemia; Z79.4 Long term (current) use of insulin; Z68.27 Body mass index [BMI] 27.0-27.9, adult; Z71.6 Tobacco abuse counseling

== ENCOUNTER 2018-11-24 21:20 | Emergency (ER) | payer OTHER, MEDICARE ==
[~2018-11-24] VITALS: Wt 90.7 kg
--- NOTE | ~2018-11-24 | EKG ---
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 Gonzalez : 1950 Requested By: ANA DUQUE Order Number: [id number] Reading MD: Christine Andrews MD Measurements Intervals [place] Rate: 117 P: 60 MS: 132 QRS: 79 QRSD: 86 T: 59 QT: 322 QTc: 450 Interpretive Statements Sinus tachycardia Minimal ST elevation, inferior leads Baseline wander in lead(s) I,III,aVL,aVF,V1,V2,V3,V4,V5,V6 Compared to ECG 05/22/2018 17:43:06 ST (T wave) deviation now present Sinus rhythm no longer present Right-axis deviation no longer present T-wave abnormality no longer present Electronically Signed On 11-30-2018 14:16:55 PDT by Christine Andrews MD CM:EKGRPT:ELECTROCARDIOGRAM REPORT 0011 1416 ANA DUQUE MD EPIPHANY DRAFT REPORT ANA DUQUE MD
--- NOTE | ~2018-11-24 | EKG ---
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: : 1950 Requested By: ANA DUQUE Order Number: [id number] Reading MD: Christine Andrews MD Measurements Intervals [place] Rate: 135 P: 82 HI: 122 QRS: 96 QRSD: 94 T: 57 QT: 301 QTc: 452 Interpretive Statements Sinus tachycardia Ventricular bigeminy ( 2 PVCs ) Right axis deviation Low voltage, precordial leads Compared to ECG 05/22/2018 17:43:06 Ventricular premature complex(es) now present Low QRS voltage now present Sinus rhythm no longer present T-wave abnormality no longer present Electronically Signed On 11-30-2018 14:16:25 PDT by Christine Andrews MD CM:EKGRPT:ELECTROCARDIOGRAM REPORT 26 1416 ANA DUQUE MD EPIPHANY DRAFT REPORT ANA DUQUE MD
[~2018-11-24 21:20] MED LIST: ATIVAN0.5 MG PO; ATROPINE SULFATE2 M2 OP; Carafate1 GM PO; LANTUS SOL100 UNIT/1 SQ; LOPRESSOR25 MG NG; MORPHINE S20 MG/1 M1 PO; MORPHINE S20 MG/5 ML PO; MUCINEX ER600 MG PO; PREDNISONE10 MG PO; PROAIR HFA8.5 GM INH; SYMB160 INH; ZITHROMAX250 MG PO
[2018-11-24 21:56] LABS: ABG BASE EXCESS 1.6 mmol/L (-2.0-2.0); ABG HCO3 25.1 mmol/l (22-26); ABG O2 SATURATION 95.3 % (95-97); ARTERIAL BLOOD GAS PCO2 37.3 mmHg (35-45); ARTERIAL BLOOD GAS PH 7.443 (7.35-7.45); ARTERIAL BLOOD GAS PO2 72.5 mmHg (80-90)
[2018-11-24 21:56] LABS: HEMATOCRIT 41.4 % (42.0-52.0); HEMOGLOBIN 13.5 g/dl (14.0-18.0); MEAN CELL VOLUME 86.3 fl (80.0-94.0); MEAN CORPUSCULAR HGB 28.1 pg (27.0-31.0); MEAN CORPUSCULAR HGB CONC 32.6 g/dl (33.0-37.0); MEAN PLATELET VOLUME 11.3 fl (9.6-12.3); PLATELET COUNT AUTOMATED 252 10*3/uL (130-400); RED CELL DISTRI WIDTH 15.5 % (0-14.5); WHITE BLOOD COUNT 26.7 10*3/uL (4.8-10.8)
[2018-11-24 22:06] LABS: ACT PARTIAL THROMBO TIME 28.7 SECONDS (20.0-32.1)
[2018-11-24 22:13] LABS: ALKALINE PHOSPHATASE 91 U/L (45-117); BUN 29 mg/dl (7-24); CHLORIDE 96 mmol/L (98-107); CREATININE 2.15 mg/dL (0.70-1.30); POTASSIUM 4.4 mmol/L (3.5-5.1); SGOT/AST 49 IU/L (3-35); SGPT/ALT 13 U/L (12-78); SODIUM 132 mmol/L (136-145); TOTAL PROTEIN 7.6 gm/dL (6.4-8.2)
[2018-11-24 22:17] LABS: PLATELET SUFFICIENCY NORMAL (NORMAL); TOTAL CELLS COUNTED 100 #CELLS
[2018-11-24 22:18] LABS: VACUOLATION OF NEUTROPHILS SLIGHT
[2018-11-24 22:19] LABS: TROPONIN I < 0.015 ng/ml (<0.045)
[2018-11-25] MEDS ORDERED: KEFLEX500 M1 PO (00:23)
[2018-11-25] MEDS ORDERED: MAG-OXIDE200 MG PO (00:23)
== END 2018-11-25 01:43 | disposition hospice, home (50) ==
LOC: ED 21:20
PROVIDERS: Emergency Medicine Emergency Medical Services
DX: J96.22 Acute and chronic respiratory failure with hypercapnia (principal); E11.65 Type 2 diabetes mellitus with hyperglycemia; N39.0 Urinary tract infection, site not specified; J44.9 Chronic obstructive pulmonary disease, unspecified; E83.42 Hypomagnesemia; M25.512 Pain in left shoulder; M79.602 Pain in left arm; R11.2 Nausea with vomiting, unspecified; M54.5 Low back pain; R61 Generalized hyperhidrosis; R00.0 Tachycardia, unspecified; R19.7 Diarrhea, unspecified; F17.210 Nicotine dependence, cigarettes, uncomplicated; R63.0 Anorexia; R26.2 Difficulty in walking, not elsewhere classified; I10 Essential (primary) hypertension; E78.5 Hyperlipidemia, unspecified; F17.200 Nicotine dependence, unspecified, uncomplicated; Z79.4 Long term (current) use of insulin; Z88.6 Allergy status to analgesic agent; Z79.899 Other long term (current) drug therapy; Z99.81 Dependence on supplemental oxygen; W18.39XA Other fall on same level, initial encounter; Y93.89 Activity, other specified; Y92.091 Bathroom in other non-institutional residence as the place of occurrence of the external cause; Y99.8 Other external cause status